=== PATIENT | female | born 1980 | race African-American/Black ===

== ENCOUNTER 2016-12-09 15:56 | Emergency (ER) | payer OTHER ==
--- NOTE | 2016-12-09 16:44 | ED NURSING NOTES ---
Clinical Report - Nurses Merged With [facility] [address] [place] [address] 12/09/2016 15:58 [id number] Triage time 16:00 Dec 09 2016. Acuity: LEVEL 3. Chief Complaint: PAINFUL URINATION and FREQUENCY and LOW BACK PAIN. Alert. --16:13 Steve Osorio R.N. 16:00 12/09/16. BP: 128/69. HR: 109. RR: 16. O2 saturation: 100% on room air. Temp: 99.9 F. Pain level now: 04/18. --16:13 Steve Osorio R.N. HETAL COMA SCORE: Hetal Coma Scale: 15- eyes open spontaneously (4); best verbal response- oriented x 4 (5); best motor response- obeys commands (6). --16:13 Steve Osorio R.N. Weight: 99.7 kg stated. Height/Length: 65 inches Per Patient. BMI: 36.6. --16:12 Steve Osorio R.N. Medications Iron Oral 325 mg, daily. --16:08 Steve Osorio R.N. Medication/allergy information source: the patient. --16:13 Steve Osorio R.N. Allergies No Known Drug Allergy. --16:09 Steve Osorio R.N. History Arrived by private vehicle. Historian: patient. Unaccompanied. Primary physician (Delvis Phan). ( Dysuria associated with Back pain. Pt states that she has had a previous UTI years ago and these symptoms are similar to those.). Onset. (about 3 days ago). She has had moderate right-sided and left-sided flank pain. Last oral intake by patient was (about 1/2 hour ago). 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 PAST MEDICAL HX: Immunizations: up-to-date. SURGERY HX: No history of previous surgery. SOCIAL HX: Light tobacco smoker (cigarette)- less than 1/2 a pack per day. Alcohol use; consumes two wine weekly. No drug use. No infectious disease exposure. ABUSE ASSESSMENT: No report of abuse. FALL RISK ASSESSMENT: Fall risk assessment completed. No fall risk identified. NUTRITIONAL RISK ASSESSMENT: The nutritional risk assessment revealed no deficiencies. FUNCTIONAL ASSESSMENT: Functional assessment: no impairments noted. LEARNING NEEDS ASSESSMENT: The learning needs assessment revealed no barriers. SKIN INTEGRITY ASSESSMENT: Skin integrity risk assessment completed. No skin integrity risk identified. --16:13 Steve Osorio R.N. PAST MEDICAL HX: Last normal menstrual period was 3 weeks ago. Denies current . --16:16 Steve Osorio R.N. PROBLEMS: Fever. Sprain. Tetanus Status. Anemia. --16:10 Steve Osorio R.N. Interventions ID band on patient. To treatment room. --16:13 Steve Osorio R.N. PHYSICAL ASSESSMENT Ambulatory to room. GENERAL / NEURO / PSYCH: Alert. Oriented X 4. HEENT: Mucous membranes are pink. RESPIRATORY: Respirations not labored. Breath sounds within normal limits. CVS: Cardiac rhythm: sinus tachycardia. Capillary refill less than 2 seconds. GI / : Abdomen soft and nontender. Bowel sounds within normal limits. Vaginal bleeding. Vaginal discharge. SKIN: Skin is warm and dry. --16:14 Steve Osorio R.N. NURSING PROGRESS NOTES Patient gowned. Reassurance given to the patient. Patient identifiers checked. Call light placed in reach. Side rails up x 1. Bed placed in lowest position. Brakes of bed on. Patient ready for evaluation- chart flagged and ED physician notified. --16:14 Steve Osorio R.N. <<STRICKEN ENTRY-- Patient ID band checked for patient name, birthdate and medical record number: patient confirmed. Instructions provided to collect clean catch urine and patient verbalized understanding. Clean catch urine collected with return of yellow-colored clear urine; odor is normal; sample sent to lab for urinalysis and culture. Specimen labeled in the presence of the patient. Urine sample not sent to lab for HCG. --16:15 Steve Osorio R.N. --END STRIKE>> Correction --16:20 Steve Osorio R.N. Patient ID band checked for patient name, birthdate and medical record number: patient confirmed. Instructions provided to collect clean catch urine and patient verbalized understanding. Clean catch urine collected with return of yellow-colored orange-colored cloudy urine; odor is normal; sample sent to lab for urinalysis, culture and HCG. Specimen labeled in the presence of the patient. --16:21 Steve Osorio R.N. DISPOSITION / DISCHARGE No learning barriers present. Discharge instructions provided and reviewed with the patient. Reviewed medication(s) side effects, precautions, dosing and course information. Prescription(s) given to the patient. Patient verbalized understanding. Written instructions provided in Kuwaiti. The patient was discharged home and accompanied by biology instructor. She left the Emergency Department ambulatory and via private vehicle. Elementary School Tutor driving. Medication list reviewed and validated. --17:09 Karen Feldman R.N. 17:08 12/09/16. BP: 124/72. HR: 84. RR: 20. O2 saturation: 98% on room air. Temp: deferred. Pain level now: 01/17. 16:00 12/09/16. BP: 128/69. HR: 109. RR: 16. O2 saturation: 100% on room air. Temp: 99.9 F. Pain level now: 10. --17:09 Karen Feldman R.N. <<STRICKEN ENTRY-- 17:00. --17:09 Karen Feldman R.N. --END STRIKE>> Correction --17: Karen Feldman R.N. Locked/Released at 12/09/2016 17:10 by Karen Feldman R.N.
--- NOTE | 2016-12-09 16:44 | ED CLINICAL REPORT ---
Clinical Report - Physicians/Mid Levels [facility] [address] [place] [address] 12/09/2016 15:58 [id number] Time Seen: 16:27 Dec 09 2016. Arrived- By private vehicle. Historian- patient. HISTORY OF PRESENT ILLNESS Chief Complaint: DYSURIA. This started about 3 - 4 days ago and still present (persistent). It was abrupt in onset. The patient has had mild centrally located lower back pain. No abdominal pain, pelvic pain, vaginal pain, flank pain or abnormal bleeding. No vaginal discharge. She has had pain with urination and urgency of urination. The patient has had urinary frequency. Similar symptoms previously: Several times, as bad. Recent medical care: Not recently seen/assessed. REVIEW OF SYSTEMS No nausea, vomiting, diarrhea, headache or fever. No chills, sore throat, cough, difficulty breathing or chest pain. No skin rash. She has had joint pain. All systems otherwise negative, except as recorded above. PAST HISTORY See nurses notes. No history of heart disease or lung disease. SOCIAL HISTORY Smoker- current status unknown. Alcohol use. No drug use. ADDITIONAL NOTES The nursing notes have been reviewed. PHYSICAL EXAM Appearance: Alert. Oriented X3. No acute distress. HEENT: Normal external inspection. ENT: Pharynx normal. Neck: Neck supple. Respiratory: No respiratory distress. Abdomen: Soft. Mild tenderness in the suprapubic area. No guarding or rebound tenderness. No organomegaly. No mass. Back: Mild soft-tissue tenderness in the right lower and left lower lumbar area. No right CVA tenderness or left CVA tenderness. Normal external inspection. No CVA tenderness. Skin: Skin warm and dry. Normal skin color. No rash. Normal skin turgor. Extremities: No lower extremity edema. Neuro: Oriented X 3. Mood/affect normal. No motor deficit. LABS, X-RAYS, AND EKG Laboratory Tests: UA-Culture if indicated: (MANNIE: 12/09/2016 16:15) ( MsgRcvd 12/09/2016 16:45) Final results Test Result Flag Units (Reference) URINE COLOR GORDY URINE APPEARANCE CLOUDY URINE GLUCOSE NEGATIVE (NEGATIVE) URINE BILIRUBIN NEGATIVE (NEGATIVE) URINE KETONE NEGATIVE (NEGATIVE) URINE SPECIFIC GRAVITY 1.025 (1.010-1.030) URINE PH 6.0 (5.0-8.0) URINE PROTEIN 2+ (NEGATIVE) URINE UROBILINOGEN 1.0 EU/dL (0.2-1.0) URINE NITRITE POSITIVE (NEGATIVE) URINE BLOOD 1+ (NEGATIVE) URINE LEUK ESTERASE POSITIVE (NEGATIVE) URINE RBC NONE SEEN rbc/hpf (0-1) URINE WBC TNTC wbc/hpf (0-1) URINE EPITHELIAL CELLS 10-15 EPI/hpf (0-5) MANY RENAL EPITHELIALS URINE BACTERIA MODERATE (2+ TO 3+) (NONE SEEN) URINE COMMENT CULTURE INDICATED URINE CULTURES ARE SET-UP BASED ON THE FOLLOWING CRITERIA:POSITIVE NITRITEPOSITIVE LEUKOCYTE ESTERASEGREATER THAN 10 WHITE BLOOD CELLSMODERATE (2+) OR GREATER BACTERIA Urine: (MANNIE: 12/09/2016 16:15) ( MsgRcvd 12/09/2016 16:46) Final results Test Result Flag Units (Reference) URINE NEGATIVE . PROGRESS AND PROCEDURES Course of Care: 16:34 12/09/16. Patient stable. Cystitis symptoms without a vaginal discharge. No systemic symptoms. She's got some mild lower back pain but no CVA tenderness. Doubt pyelonephritis. We'll get urine for culture and confirmationof UTI but otherwise treat for simple UTI. Disposition: Discharged in good condition. CLINICAL IMPRESSION Acute urinary tract infection with cystitis. INSTRUCTIONS Rest at home today. Drink plenty of fluids. Do not smoke. No alcohol until better. Warnings: GENERAL WARNINGS: Return or contact your physician immediately if your condition worsens or changes unexpectedly, if not improving as expected, or if other problems arise. Specifically return if vomiting or fever greater than 102 degrees F and not controlled worsens or fails to resolve. Prescription Medications: Macrobid 100 mg: take 1 capsule orally every 12 hours for 7 days. No refill. Substitution is permissible. OTC Medications: Motrin (available over the counter): take according to label instructions. Follow-up: Return to the emergency department If symptoms significantly worsen. as needed. Follow up with your doctor in two days if not well. Understanding of the discharge instructions verbalized by patient. (Electronically signed by Dennis Obrien, 12/09/2016 23:00)
--- NOTE | 2016-12-09 16:44 | ED ORDER SUMMARY ---
..... Patient: AMAN RIVERA OrderSheet [facility] VisitID: [id number] [place] [address] 36y, F Registration Date/Time: 12/09/2016 ORDER SHEET Weight: 99.7 kg (stated) Allergies: No Known Drug Allergy GENERAL ORDERS: UA-Culture if indicated Urgent (16:16 12/09/2016 Nicole Cao verbal order read back to Otis VELOZ) (Ack 16:33 Celestine) Urine Urgent (16:32 12/09/2016 Justin) (Ac 16:33 Celestine) MEDICATION ORDERS: IV FLUIDS: ORDER SHEET NOTES: [Electronically signed by Karen Feldman R.N. (17:10 12/09/2016)] [Electronically signed by Dennis Obrien (23:00 12/09/2016)] [Electronically locked/signed by Karen Feldman R.N. (17:12/09/2016)]
--- NOTE | 2016-12-09 16:44 | ED NURSING NOTES ---
Clinical Report - Nurses [facility] [address] [place] [address] 12/09/2016 15:58 [id number] Triage time 16:00 Dec 09 2016. Acuity: LEVEL 3. Chief Complaint: PAINFUL URINATION and FREQUENCY and LOW BACK PAIN. Alert. --16:13 Steve Osorio R.N. 16:00 12/09/16. BP: 128/69. HR: 109. RR: 16. O2 saturation: 100% on room air. Temp: 99.9 F. Pain level now: 04/18. --16:13 Steve Osorio R.N. HETAL COMA SCORE: Hetal Coma Scale: 15- eyes open spontaneously (4); best verbal response- oriented x 4 (5); best motor response- obeys commands (6). --16:13 Steve Osorio R.N. Weight: 99.7 kg stated. Height/Length: 65 inches Per Patient. BMI: 36.6. --16:12 Steve Osorio R.N. Medications Iron Oral 325 mg, daily. --16:08 Steve Osorio R.N. Medication/allergy information source: the patient. --16:13 Steve Osorio R.N. Allergies No Known Drug Allergy. --16:09 Steve Osorio R.N. History Arrived by private vehicle. Historian: patient. Unaccompanied. Primary physician (Delvis Phan). ( Dysuria associated with Back pain. Pt states that she has had a previous UTI years ago and these symptoms are similar to those.). Onset. (about 3 days ago). She has had moderate right-sided and left-sided flank pain. Last oral intake by patient was (about 1/2 hour ago). 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 PAST MEDICAL HX: Immunizations: up-to-date. SURGERY HX: No history of previous surgery. SOCIAL HX: Light tobacco smoker (cigarette)- less than 1/2 a pack per day. Alcohol use; consumes two wine weekly. No drug use. No infectious disease exposure. ABUSE ASSESSMENT: No report of abuse. FALL RISK ASSESSMENT: Fall risk assessment completed. No fall risk identified. NUTRITIONAL RISK ASSESSMENT: The nutritional risk assessment revealed no deficiencies. FUNCTIONAL ASSESSMENT: Functional assessment: no impairments noted. LEARNING NEEDS ASSESSMENT: The learning needs assessment revealed no barriers. SKIN INTEGRITY ASSESSMENT: Skin integrity risk assessment completed. No skin integrity risk identified. --16:13 Steve Osorio R.N. PAST MEDICAL HX: Last normal menstrual period was 3 weeks ago. Denies current . --16:16 Steve Osorio R.N. PROBLEMS: Fever. Sprain. Tetanus Status. Anemia. --16:10 Steve Osorio R.N. Interventions ID band on patient. To treatment room. --16:13 Steve Osorio R.N. PHYSICAL ASSESSMENT Ambulatory to room. GENERAL / NEURO / PSYCH: Alert. Oriented X 4. HEENT: Mucous membranes are pink. RESPIRATORY: Respirations not labored. Breath sounds within normal limits. CVS: Cardiac rhythm: sinus tachycardia. Capillary refill less than 2 seconds. GI / : Abdomen soft and nontender. Bowel sounds within normal limits. Vaginal bleeding. Vaginal discharge. SKIN: Skin is warm and dry. --16:14 Steve Osorio R.N. NURSING PROGRESS NOTES Patient gowned. Reassurance given to the patient. Patient identifiers checked. Call light placed in reach. Side rails up x 1. Bed placed in lowest position. Brakes of bed on. Patient ready for evaluation- chart flagged and ED physician notified. --16:14 Steve Osorio R.N. <<STRICKEN ENTRY-- Patient ID band checked for patient name, birthdate and medical record number: patient confirmed. Instructions provided to collect clean catch urine and patient verbalized understanding. Clean catch urine collected with return of yellow-colored clear urine; odor is normal; sample sent to lab for urinalysis and culture. Specimen labeled in the presence of the patient. Urine sample not sent to lab for HCG. --16:15 Steve Osorio R.N. --END STRIKE>> Correction --16:20 Steve Osorio R.N. Patient ID band checked for patient name, birthdate and medical record number: patient confirmed. Instructions provided to collect clean catch urine and patient verbalized understanding. Clean catch urine collected with return of yellow-colored orange-colored cloudy urine; odor is normal; sample sent to lab for urinalysis, culture and HCG. Specimen labeled in the presence of the patient. --16:21 Steve Osorio R.N. DISPOSITION / DISCHARGE No learning barriers present. Discharge instructions provided and reviewed with the patient. Reviewed medication(s) side effects, precautions, dosing and course information. Prescription(s) given to the patient. Patient verbalized understanding. Written instructions provided in Peruvian. The patient was discharged home and accompanied by performance reporter. She left the Emergency Department ambulatory and via private vehicle. Electronic Equipment Maint Tech driving. Medication list reviewed and validated. --17:09 Karen Feldman R.N. 17:08 12/09/16. BP: 124/72. HR: 84. RR: 20. O2 saturation: 98% on room air. Temp: deferred. Pain level now: 01/17. 16:00 12/09/16. BP: 128/69. HR: 109. RR: 16. O2 saturation: 100% on room air. Temp: 99.9 F. Pain level now: 10. --17:09 Karen Feldman R.N. <<STRICKEN ENTRY-- 17:00. --17:09 Karen Feldman R.N. --END STRIKE>> Correction --17: Karen Feldman R.N. Locked/Released at 12/09/2016 17:10 by Karen Feldman R.N.
--- NOTE | 2016-12-09 16:44 | ED ORDER SUMMARY ---
..... Patient: AMAN RIVERA OrderSheet [facility] VisitID: [id number] [place] [address] 36y, F Registration Date/Time: 12/09/2016 ORDER SHEET Weight: 99.7 kg (stated) Allergies: No Known Drug Allergy GENERAL ORDERS: UA-Culture if indicated Urgent (16:16 12/09/2016 Nicole Cao verbal order read back to Otis VELOZ) (Ack 16:33 Celestine) Urine Urgent (16:32 12/09/2016 Justin) (Ac 16:33 Celestine) MEDICATION ORDERS: IV FLUIDS: ORDER SHEET NOTES: [Electronically signed by Karen Feldman R.N. (17:10 12/09/2016)] [Electronically signed by Dennis Obrien (23:00 12/09/2016)] [Electronically locked/signed by Karen Feldman R.N. (17:12/09/2016)]
--- NOTE | 2016-12-09 23:00 | ED MED RECONCILIATION SUMMARY ---
Patient: AMAN RIVERA Medication Reconciliation Report [facility] VisitID: [id number] [address] [place] [address] 36y, F Registration Date/Time: 12/09/2016 Weight: 99.7 kg Height/Length: 65 in. BMI: 36.6 ALLERGIES: No Known Drug Allergy The patient's Home Medications are listed below: THE FOLLOWING MEDICATIONS NEED TO BE RECONCILED: Iron Oral 325 mg, daily The source(s) of the original Home Medication information: patient The following Medications were given to the patient in the Emergency Department: None. The following Medications were prescribed to the patient: Motrin (available over the counter): take according to label instructions. -- Dennis Obrien Macrobid 100 mg: take 1 capsule orally every 12 hours for 7 days. No refill. Substitution is permissible. -- Dennis Obrien
--- NOTE | 2016-12-09 23:00 | ED MAR SUMMARY ---
..... Medication Administration Record [facility] [address], [place] [id number] Patient: AMAN RIVEAR Visit ID: [id number] 36y, F Weight: 99.7 kg Height/Length: 65 in BMI: 36.6 ALLERGIES: No Known Drug Allergy
--- NOTE | 2016-12-09 23:00 | ED MAR SUMMARY ---
..... Medication Administration Record [facility] [address], [place] [id number] Patient: AMAN RIVERA Visit ID: [id number] 36y, F Weight: 99.7 kg Height/Length: 65 in BMI: 36.6 ALLERGIES: No Known Drug Allergy
--- NOTE | 2016-12-09 23:00 | ED DISCHARGE INSTRUCTIONS ---
Patient: AMAN RIVERA General Instructions [facility] VisitID: [id number] [place] [address] 36y, F Registration Date/Time: 12/09/2016 Acute urinary tract infection with cystitis. INSTRUCTIONS Rest at home today. Drink plenty of fluids. Do not smoke. No alcohol until better. Warnings: GENERAL WARNINGS: Return or contact your physician immediately if your condition worsens or changes unexpectedly, if not improving as expected, or if other problems arise. Specifically return if vomiting or fever greater than 102 degrees F and not controlled worsens or fails to resolve. Prescription Medications: Macrobid 100 mg: take 1 capsule orally every 12 hours for 7 days. No refill. Substitution is permissible. OTC Medications: Motrin (available over the counter): take according to label instructions. Follow-up: Return to the emergency department If symptoms significantly worsen. as needed. Follow up with your doctor in two days if not well. Understanding of the discharge instructions verbalized by patient. ADDITIONAL INFORMATION Bladder Infection,Female (Adult) A bladder infection ("cystitis" or "UTI") usually causes a constant urge to urinate and a burning when passing urine. Urine may be cloudy, smelly or dark. There may be pain in the lower abdomen. A bladder infection occurs when bacteria from the vaginal area enter the bladder opening (urethra). This can occur from sexual intercourse, wearing tight clothing, dehydration and other factors. Home Care: Drink lots of fluids (at least 6-8 glasses a day, unless you must restrict fluids for other medical reasons). This will force the medicine into your urinary system and flush the bacteria out of your body. Avoid sexual intercourse until your symptoms are gone. Avoid caffeine, alcohol and spicy foods. These can irritate the bladder. A bladder infection is treated with antibiotics. You may also be given Pyridium (generic = phenazopyridine) to reduce the burning sensation. This medicine will cause your urine to become a bright orange color. The orange urine may stain clothing. You may wear a pad or panty-liner to protect clothing. Preventing Future Infections: Always wipe from front to back after a bowel movement. Keep the genital area clean and dry. Drink plenty of fluids each day to avoid dehydration. Both sexual partners should wash before intercourse. Urinate right after intercourse to flush out the bladder. Wear cotton underwear and cotton-lined panty hose; avoid tight-fitting pants. If you are on control pills and are having frequent bladder infections, discuss with your doctor. Follow Up: Return to this facility or see your doctor if ALL symptoms are not gone after three days of treatment. Get Prompt Medical Attention if any of the following occur: Fever of 100.4F (38C) or higher, or as directed by your healthcare provider No improvement by the third day of treatment Increasing back or abdominal pain Repeated vomiting; unable to keep medicine down Weakness, dizziness or fainting Vaginal discharge Pain, redness or swelling in the labia (outer vaginal area) Nitrofurantoin, Nitrofurantoin, Macrocrystalline Oral capsule What is this medicine? NITROFURANTOIN (sophia carballolinda bennie YU toyn) is an antibiotic. It is used to treat urinary tract infections. How should I use this medicine? Take this medicine by mouth with a glass of water. Follow the directions on the prescription label. Take this medicine with food or milk. Take your doses at regular intervals. Do not take your medicine more often than directed. Do not stop taking except on your doctor's advice. Talk to your community center worker regarding the use of this medicine in children. While this drug may be prescribed for selected conditions, precautions do apply. What side effects may I notice from receiving this medicine? Side effects that you should report to your doctor or health career specialist as soon as possible: allergic reactions like skin rash or hives, swelling of the face, lips, or tongue chest pain cough difficulty breathing dizziness, drowsiness fever or infection joint aches or pains pale or blue-tinted skin redness, blistering, peeling or loosening of the skin, including inside the mouth tingling, burning, pain, or numbness in hands or feet unusual bleeding or bruising unusually weak or tired yellowing of eyes or skin Side effects that usually do not require medical attention (report to your doctor or health career specialist if they continue or are bothersome): dark urine diarrhea headache loss of appetite nausea or vomiting temporary hair loss What may interact with this medicine? antacids containing magnesium trisilicate probenecid quinolone antibiotics like ciprofloxacin, lomefloxacin, norfloxacin and ofloxacin sulfinpyrazone What if I miss a dose? If you miss a dose, take it as soon as you can. If it is almost time for your next dose, take only that dose. Do not take double or extra doses. Where should I keep my medicine? Keep out of the reach of children. Store at room temperature between 15 and 30 degrees C (59 and 86 degrees F). Protect from light. Throw away any unused medicine after the expiration date. What should I tell my health care provider before I take this medicine? They need to know if you have any of these conditions: anemia diabetes [id number] dehydrogenase deficiency kidney disease liver disease lung disease other chronic illness an unusual or allergic reaction to nitrofurantoin, other antibiotics, other medicines, foods, dyes or preservatives or trying to get breast-feeding What should I watch for while using this medicine? Tell your doctor or health career specialist if your symptoms do not improve or if you get new symptoms. Drink several glasses of water a day. If you are taking this medicine for a long time, visit your doctor for regular checks on your progress. If you are diabetic, you may get a false positive result for sugar in your urine with certain brands of urine tests. Check with your doctor. You have been given the following additional information: Bladder Infection, Female (Adult) Nitrofurantoin, Nitrofurantoin, Macrocrystalline Oral capsule Rest at home today. (Electronically signed by Dennis Obrien, 12/09/2016 23:00)
--- NOTE | 2016-12-09 23:00 | ED DISCHARGE INSTRUCTIONS ---
Patient: AMAN RIVERA General Instructions [facility] VisitID: [id number] [place] [address] 36y, F Registration Date/Time: 12/09/2016 Acute urinary tract infection with cystitis. INSTRUCTIONS Rest at home today. Drink plenty of fluids. Do not smoke. No alcohol until better. Warnings: GENERAL WARNINGS: Return or contact your physician immediately if your condition worsens or changes unexpectedly, if not improving as expected, or if other problems arise. Specifically return if vomiting or fever greater than 102 degrees F and not controlled worsens or fails to resolve. Prescription Medications: Macrobid 100 mg: take 1 capsule orally every 12 hours for 7 days. No refill. Substitution is permissible. OTC Medications: Motrin (available over the counter): take according to label instructions. Follow-up: Return to the emergency department If symptoms significantly worsen. as needed. Follow up with your doctor in two days if not well. Understanding of the discharge instructions verbalized by patient. ADDITIONAL INFORMATION Bladder Infection,Female (Adult) A bladder infection ("cystitis" or "UTI") usually causes a constant urge to urinate and a burning when passing urine. Urine may be cloudy, smelly or dark. There may be pain in the lower abdomen. A bladder infection occurs when bacteria from the vaginal area enter the bladder opening (urethra). This can occur from sexual intercourse, wearing tight clothing, dehydration and other factors. Home Care: Drink lots of fluids (at least 6-8 glasses a day, unless you must restrict fluids for other medical reasons). This will force the medicine into your urinary system and flush the bacteria out of your body. Avoid sexual intercourse until your symptoms are gone. Avoid caffeine, alcohol and spicy foods. These can irritate the bladder. A bladder infection is treated with antibiotics. You may also be given Pyridium (generic = phenazopyridine) to reduce the burning sensation. This medicine will cause your urine to become a bright orange color. The orange urine may stain clothing. You may wear a pad or panty-liner to protect clothing. Preventing Future Infections: Always wipe from front to back after a bowel movement. Keep the genital area clean and dry. Drink plenty of fluids each day to avoid dehydration. Both sexual partners should wash before intercourse. Urinate right after intercourse to flush out the bladder. Wear cotton underwear and cotton-lined panty hose; avoid tight-fitting pants. If you are on control pills and are having frequent bladder infections, discuss with your doctor. Follow Up: Return to this facility or see your doctor if ALL symptoms are not gone after three days of treatment. Get Prompt Medical Attention if any of the following occur: Fever of 100.4F (38C) or higher, or as directed by your healthcare provider No improvement by the third day of treatment Increasing back or abdominal pain Repeated vomiting; unable to keep medicine down Weakness, dizziness or fainting Vaginal discharge Pain, redness or swelling in the labia (outer vaginal area) Nitrofurantoin, Nitrofurantoin, Macrocrystalline Oral capsule What is this medicine? NITROFURANTOIN (sophia carballolinda bennie YU toyn) is an antibiotic. It is used to treat urinary tract infections. How should I use this medicine? Take this medicine by mouth with a glass of water. Follow the directions on the prescription label. Take this medicine with food or milk. Take your doses at regular intervals. Do not take your medicine more often than directed. Do not stop taking except on your doctor's advice. Talk to your doweler regarding the use of this medicine in children. While this drug may be prescribed for selected conditions, precautions do apply. What side effects may I notice from receiving this medicine? Side effects that you should report to your doctor or health care transitions nurse as soon as possible: allergic reactions like skin rash or hives, swelling of the face, lips, or tongue chest pain cough difficulty breathing dizziness, drowsiness fever or infection joint aches or pains pale or blue-tinted skin redness, blistering, peeling or loosening of the skin, including inside the mouth tingling, burning, pain, or numbness in hands or feet unusual bleeding or bruising unusually weak or tired yellowing of eyes or skin Side effects that usually do not require medical attention (report to your doctor or health care transitions nurse if they continue or are bothersome): dark urine diarrhea headache loss of appetite nausea or vomiting temporary hair loss What may interact with this medicine? antacids containing magnesium trisilicate probenecid quinolone antibiotics like ciprofloxacin, lomefloxacin, norfloxacin and ofloxacin sulfinpyrazone What if I miss a dose? If you miss a dose, take it as soon as you can. If it is almost time for your next dose, take only that dose. Do not take double or extra doses. Where should I keep my medicine? Keep out of the reach of children. Store at room temperature between 15 and 30 degrees C (59 and 86 degrees F). Protect from light. Throw away any unused medicine after the expiration date. What should I tell my health care provider before I take this medicine? They need to know if you have any of these conditions: anemia diabetes [id number]-tconolhho dehydrogenase deficiency kidney disease liver disease lung disease other chronic illness an unusual or allergic reaction to nitrofurantoin, other antibiotics, other medicines, foods, dyes or preservatives or trying to get breast-feeding What should I watch for while using this medicine? Tell your doctor or health care transitions nurse if your symptoms do not improve or if you get new symptoms. Drink several glasses of water a day. If you are taking this medicine for a long time, visit your doctor for regular checks on your progress. If you are diabetic, you may get a false positive result for sugar in your urine with certain brands of urine tests. Check with your doctor. You have been given the following additional information: Bladder Infection, Female (Adult) Nitrofurantoin, Nitrofurantoin, Macrocrystalline Oral capsule Rest at home today. (Electronically signed by Dennis Obrien, 12/09/2016 23:00)
--- NOTE | 2016-12-09 23:00 | ED MED RECONCILIATION SUMMARY ---
Patient: AMAN RIVERA Medication Reconciliation Report [facility] VisitID: [id number] [address] [place] [address] 36y, F Registration Date/Time: 12/09/2016 Weight: 99.7 kg Height/Length: 65 in. BMI: 36.6 ALLERGIES: No Known Drug Allergy The patient's Home Medications are listed below: THE FOLLOWING MEDICATIONS NEED TO BE RECONCILED: Iron Oral 325 mg, daily The source(s) of the original Home Medication information: patient The following Medications were given to the patient in the Emergency Department: None. The following Medications were prescribed to the patient: Motrin (available over the counter): take according to label instructions. -- Dennis Obrien Macrobid 100 mg: take 1 capsule orally every 12 hours for 7 days. No refill. Substitution is permissible. -- Dennis Obrien
== END 2016-12-09 17:00 | disposition home or self-care (01) ==
LOC: ED SRH 15:56
DX: N30.00 Acute cystitis without hematuria (principal); Z79.899 Other long term (current) drug therapy
CPT/HCPCS: 90004; 90148; 90469; 93070